=== PATIENT | female | born 1950 | race Caucasian/White ===

== ENCOUNTER 2016-05-09 14:33 | Emergency (ER) | payer OTHER ==
[~2016-05-09] VITALS: Ht 157.5 cm; Wt 66.5 kg
[~2016-05-09 14:33] MED LIST: ABILIFY10 MG; ABILIFY10 MG PO; ABILIFY15 MG PO; ABILIFY5 MG PO; ACETAMINOPHEN325 M1 PO; ADVAIR; ADVAIR 500/501 DISK IH; ALBUTEROL17 GM IH; AMBIEN5 M1 PO; ANUSOL HC,ANUCO25 MG PR; ATIVAN0.5 M1 PO; BACTRIM,SEPT1 TABLET PO; CELEXA40 MG PO; CLEOCIN300 MG PO; CLONAZEPAM0.5 MG PO; COLACE100 MG PO; DIFLUCAN150 MG PO; DILAUDID2 MG PO; DOXYCYCLINE HY100 MG PO; DULCOLAX10 MG PR; EFFEXOR XR150 MG PO; EFFEXOR100 MG PO; ELAVIL25 MG PO; ENDOCET 5-3251 EACH PO; ENDOCET 7.5-321 EACH PO; FERROUS SULFAT325 MG PO; FUROSEMIDE40 MG PO; GABAPENTIN600 MG PO; GEODON80 MG PO; GLUCOPHAGE500 MG PO; HYCODAN SYRUP480 ML PO; IMODIUM MS REL1 EACH PO; IRON160 M1 PO; KLONOPIN; KLONOPIN0.5 M1 PO; KLONOPIN1 MG PO; LASIX40 MG PO; LEVAQUIN500 MG PO; LEVOFLOXACIN750 MG PO; LEXAPRO; LEXAPRO10 MG PO; LEXAPRO20 MG PO; LIDOVEX60 GM TP; LIPITOR5 MG PO; LISINOPRIL10 MG PO; LOMOTIL TABLET1 EACH PO; LORAZEPAM1 MG PO; LOVENOX40 MG/0.4 SC; METFORMIN HCL500 MG PO; MOBIC7.5 MG PO; MOTRIN600 MG PO; MOTRIN800 MG PO; MYCOLOG II CREA15 GM TP; MYCOSTATIN15 GM PO; NAPROXEN500 MG PO; NEURONTIN100 MG PO; NEURONTIN300 MG PO; NICODERM CQ1 EAC1 TD; NICOTINE PATCH1 EAC1 TD; NOVOLOG 10100 UNITS/ SC; NOVOLOG PE100 UNITS/ SC; ONGLYZA5 MG PO; OXYCODONE HCL10 MG PO; OXYCODONE HCL15 MG; OXYCODONE-APAP1 EAC4 PO; OXYCONTIN10 MG PO; OXYCONTIN20 MG PO; PERCOCET; PERCOCET 5/31 TABLET PO; POLYETHYLENE GL17 GM PO; PREDNISONE10 MG; PREDNISONE10 MG PO; PREDNISONE20 MG PO; PRINIVIL10 MG PO; PRINIVIL20 MG PO; PROAIR HFA8.5 GM IH; PROCTOFOAM15 GM TP; ROXICODONE15 MG PO; SKELAXIN800 MG PO; SPIRIVA1 INHALATI IH; TRAMADOL; TRAZODONE HCL50 MG PO; ULTRAM50 MG PO; VALTREX1000 MG PO; VANCOMYCIN1.25 GM/25 IV; XARELTO20 MG PO; ZESTRIL,PRINIVI10 MG PO; ZOVIRAX 5%; ventolin
[2016-05-09] MEDS ORDERED: METFORMIN HCL500 MG PO (16:27)
[2016-05-09] MEDS ORDERED: LEXAPRO20 MG PO (16:27)
[2016-05-09] MEDS ORDERED: ADVAIR 500/501 DISK IH (16:27)
[2016-05-09] MEDS ORDERED: SPIRIVA1 INHALATI IH (16:27)
[2016-05-09] MEDS ORDERED: TRAZODONE HCL50 MG PO (16:27)
[2016-05-09 18:03] VITALS: BP 117/65
== END 2016-05-09 18:04 | disposition home or self-care (01) ==
LOC: EME → EDBD 14:33 → EME 14:33
DX: J44.1 Chronic obstructive pulmonary disease with (acute) exacerbation (principal); Z91.14 Patient's other noncompliance with medication regimen; J43.9 Emphysema, unspecified; I10 Essential (primary) hypertension; E11.9 Type 2 diabetes mellitus without complications; F17.200 Nicotine dependence, unspecified, uncomplicated; Z79.4 Long term (current) use of insulin; Z91.040 Latex allergy status; Z88.2 Allergy status to sulfonamides; Z88.0 Allergy status to penicillin; Z91.013 Allergy to seafood; Z88.8 Allergy status to other drugs, medicaments and biological substances
CPT/HCPCS: 94640; 99281; 99285; J1100; J7644

== ENCOUNTER 2016-08-13 16:40 | Emergency (ER) | payer OTHER ==
[~2016-08-13] VITALS: Ht 154.9 cm; Wt 66.3 kg
[2016-08-13] MEDS ORDERED: LEXAPRO20 MG PO (17:55)
[2016-08-13] MEDS ORDERED: TRAZODONE HCL50 MG PO (17:55)
[2016-08-13 18:22] VITALS: BP 127/54
== END 2016-08-13 18:36 | disposition home or self-care (01) ==
LOC: EME → EDBD 16:40 → EDSEX 16:40 → EME 16:40
DX: M51.16 Intervertebral disc disorders with radiculopathy, lumbar region (principal); F32.9 Major depressive disorder, single episode, unspecified; G89.29 Other chronic pain; I10 Essential (primary) hypertension; E11.9 Type 2 diabetes mellitus without complications; I50.9 Heart failure, unspecified; J44.9 Chronic obstructive pulmonary disease, unspecified; J45.909 Unspecified asthma, uncomplicated; F41.9 Anxiety disorder, unspecified; F17.200 Nicotine dependence, unspecified, uncomplicated; Z85.048 Personal history of other malignant neoplasm of rectum, rectosigmoid junction, and anus; Z79.84 Long term (current) use of oral hypoglycemic drugs
CPT/HCPCS: 99281; 99284; J1885

== ENCOUNTER 2016-09-22 15:44 | Emergency (ER) | payer OTHER ==
[~2016-09-22] VITALS: Ht 154.9 cm; Wt 68.2 kg
[2016-09-22 17:16] LABS: HEMATOCRIT 38.2 % (36.0-46.0); MCH 29.9 PG (29.0-34.0); MCHC 33.2 G/DL (30.0-36.0); MCV 89.9 FL (83-99); MEAN PLAT.VOLUME 9.6 uM^3 (9.5-12.4); PLATELET COUNT 191 K/uL (156-360); RBC DIS.WIDTH-CV 12.9 % (11.8-14.6); RED BLOOD COUNT 4.25 M/uL (3.80-5.20); WHITE BLOOD COUNT 8.6 K/uL (4.1-10.2)
[2016-09-22 17:24] LABS: CHLORIDE 105 mEq/L (99-109); POTASSIUM 4.1 mEq/L (3.7-5.4); SODIUM 140 mEq/L (136-147)
[2016-09-22 17:26] LABS: GLUCOSE 109 mg/dL (70-99); PROTHROMBIN TIME 10.3 (9.2-11.2); PTT 24.8 (25-32)
[2016-09-22 17:28] LABS: ANION GAP 10 MEQ/L (2-14)
[2016-09-22 17:30] LABS: GFR ESTIMATE (CALCULATED) > 59 mL/min/
[2016-09-22 17:31] LABS: UREA NITROGEN (BUN) 19 mg/dL (9-23)
[2016-09-22 20:48] VITALS: BP 110/55
== END 2016-09-22 20:50 | disposition home or self-care (01) ==
LOC: EME 15:44
PROVIDERS: Emergency Medicine
DX: S00.93XA Contusion of unspecified part of head, initial encounter (principal); Y04.2XXA Assault by strike against or bumped into by another person, initial encounter; Y07.499 Other family member, perpetrator of maltreatment and neglect; J44.9 Chronic obstructive pulmonary disease, unspecified; I10 Essential (primary) hypertension; E11.9 Type 2 diabetes mellitus without complications; F17.200 Nicotine dependence, unspecified, uncomplicated
CPT/HCPCS: 70450; 70551; 80048; 85027; 85610; 85730; 99281; 99285; J2060; J7030

== ENCOUNTER 2016-09-24 22:27 | Emergency (ER) | payer OTHER ==
[~2016-09-24] VITALS: Ht 154.9 cm; Wt 68.1 kg
[2016-09-24 22:49] LABS: HEMATOCRIT 38.4 % (36.0-46.0); MCH 29.7 PG (29.0-34.0); MCHC 33.6 G/DL (30.0-36.0); MCV 88.5 FL (83-99); MEAN PLAT.VOLUME 9.9 uM^3 (9.5-12.4); PLATELET COUNT 209 K/uL (156-360); RBC DIS.WIDTH-CV 12.9 % (11.8-14.6); RBC DIS.WIDTH-SD 41.2 % (39-53); RED BLOOD COUNT 4.34 M/uL (3.80-5.20); WHITE BLOOD COUNT 8.7 K/uL (4.1-10.2)
[2016-09-24 22:58] LABS: CHLORIDE 105 mEq/L (99-109); POTASSIUM 3.9 mEq/L (3.7-5.4); SODIUM 138 mEq/L (136-147)
[2016-09-24 23:01] LABS: GLUCOSE 168 mg/dL (70-99)
[2016-09-24 23:02] LABS: ANION GAP 7 MEQ/L (2-14); TOTAL BILIRUBIN 0.4 mg/dL (0.0-1.0)
[2016-09-24 23:04] LABS: ALKALINE PHOSPHATASE 71 IU/L (3-129); GFR ESTIMATE (CALCULATED) > 59 mL/min/
[2016-09-24 23:05] LABS: UREA NITROGEN (BUN) 17 mg/dL (9-23)
[2016-09-24 23:07] LABS: LIPASE 7 U/L (1.0-51.0)
[2016-09-25 01:39] LABS: ADD MIUA? YES; BILIRUBIN NEGATIVE; BLOOD NEGATIVE; COLOR YELLOW ((YELLOW)); GLUCOSE (STRIP) NEGATIVE; KETONES NEGATIVE; LEUKOCYTES LARGE; NITRITE POSITIVE; PROTEIN (STRIP) NEGATIVE; SPECIFIC GRAVITY 1.018 (1.000-1.030); UROBILINOGEN 0.2 MG/DL (0.2-1.0)
[2016-09-25 01:41] LABS: BACTERIA RARE /HPF; EPITHELIAL CELLS 1+ /HPF; HYALINE CASTS 0-5 /LPF; MUCUS TRACE /LPF; RED BLOOD CELLS 0-5 /HPF (0-5); WHITE BLOOD CELLS 30-40 /HPF (0-5)
[2016-09-25] MEDS ORDERED: KEFLEX500 MG PO (01:45)
[2016-09-25] MEDS ORDERED: PERCOCET 5/31 TABLET PO (01:55)
[2016-09-25 02:34] VITALS: BP 129/64
== END 2016-09-25 02:35 | disposition home or self-care (01) ==
LOC: EME 22:27
PROVIDERS: Emergency Medicine
DX: S70.02XD Contusion of left hip, subsequent encounter (principal); N30.90 Cystitis, unspecified without hematuria; Y08.89XD Assault by other specified means, subsequent encounter; E11.9 Type 2 diabetes mellitus without complications; J44.9 Chronic obstructive pulmonary disease, unspecified; I10 Essential (primary) hypertension; F17.200 Nicotine dependence, unspecified, uncomplicated; Z79.84 Long term (current) use of oral hypoglycemic drugs; Z79.899 Other long term (current) drug therapy
CPT/HCPCS: 73502; 80053; 81003; 83690; 85027; 99281; 99285

== ENCOUNTER 2016-10-17 18:06 | Emergency (ER) | payer OTHER ==
[~2016-10-17] VITALS: Ht 154.9 cm; Wt 69.9 kg
[~2016-10-17 18:06] MED LIST changes: +KEFLEX500 MG PO
[2016-10-17 19:36] LABS: CHLORIDE 108 mEq/L (99-109); SODIUM 143 mEq/L (136-147)
[2016-10-17 19:37] LABS: HEMATOCRIT 36.7 % (36.0-46.0); MCH 30.3 PG (29.0-34.0); MCHC 32.2 G/DL (30.0-36.0); MEAN PLAT.VOLUME 9.3 uM^3 (9.5-12.4); PLATELET COUNT 217 K/uL (156-360); RBC DIS.WIDTH-CV 14.4 % (11.8-14.6); WHITE BLOOD COUNT 7.6 K/uL (4.1-10.2)
[2016-10-17 19:38] LABS: GLUCOSE 96 mg/dL (70-99); MCV 94.1 FL (83-99)
[2016-10-17 19:40] LABS: ANION GAP 6 MEQ/L (2-14); TOTAL BILIRUBIN 0.2 mg/dL (0.0-1.0)
[2016-10-17 19:42] LABS: ALKALINE PHOSPHATASE 89 IU/L (3-129); GFR ESTIMATE (CALCULATED) > 59 mL/min/
[2016-10-17 19:43] LABS: UREA NITROGEN (BUN) 12 mg/dL (9-23)
[2016-10-17 19:48] LABS: TROP-I INTERPRETATION NEGATIVE; TROPONIN-I < 0.01 ng/mL (0.0-0.30)
[2016-10-17 20:04] LABS: ADD MIUA? YES; BILIRUBIN NEGATIVE; BLOOD NEGATIVE; COLOR YELLOW ((YELLOW)); GLUCOSE (STRIP) NEGATIVE; KETONES NEGATIVE; LEUKOCYTES LARGE; NITRITE POSITIVE; PROTEIN (STRIP) 30; SPECIFIC GRAVITY 1.014 (1.000-1.030); UROBILINOGEN 0.2 MG/DL (0.2-1.0)
[2016-10-17 20:13] LABS: BACTERIA 2+ /HPF; EPITHELIAL CELLS RARE /HPF; MUCUS TRACE /LPF; RED BLOOD CELLS 0-5 /HPF (0-5); UCUL ADDED? YES; WHITE BLOOD CELLS TNTC /HPF (0-5)
[2016-10-17] MEDS ORDERED: KEFLEX500 MG PO (20:59)
[2016-10-17 23:18] VITALS: BP 126/60
== END 2016-10-18 01:16 | disposition home or self-care (01) ==
LOC: EME 18:06
PROVIDERS: Emergency Medicine
DX: N30.00 Acute cystitis without hematuria (principal); E11.9 Type 2 diabetes mellitus without complications; J44.9 Chronic obstructive pulmonary disease, unspecified; I10 Essential (primary) hypertension; F17.200 Nicotine dependence, unspecified, uncomplicated
CPT/HCPCS: 74176; 80053; 81003; 84484; 85027; 87077; 87086; 87186; 93005; 99281; 99285; J0696; J2270; J7050

== ENCOUNTER 2017-01-28 16:06 | Emergency (ER) | payer OTHER ==
[~2017-01-28] VITALS: Ht 162.6 cm; Wt 139.2 kg
[2017-01-28 18:02] LABS: HEMATOCRIT 37.6 % (36.0-46.0); MCH 30.3 PG (29.0-34.0); MCHC 32.7 G/DL (30.0-36.0); MCV 92.6 FL (83-99); MEAN PLAT.VOLUME 9.7 uM^3 (9.5-12.4); PLATELET COUNT 229 K/uL (156-360); RBC DIS.WIDTH-CV 13.1 % (11.8-14.6); RBC DIS.WIDTH-SD 44.3 % (39-53); RED BLOOD COUNT 4.06 M/uL (3.80-5.20); WHITE BLOOD COUNT 8.3 K/uL (4.1-10.2)
[2017-01-28 18:12] LABS: CHLORIDE 107 mEq/L (99-109); SODIUM 138 mEq/L (136-147)
[2017-01-28 18:14] LABS: GLUCOSE 111 mg/dL (70-99)
[2017-01-28 18:16] LABS: ANION GAP 7 MEQ/L (2-14)
[2017-01-28 18:18] LABS: GFR ESTIMATE (CALCULATED) > 59 mL/min/
[2017-01-28 18:19] LABS: UREA NITROGEN (BUN) 15 mg/dL (9-23)
[2017-01-28 18:24] LABS: TROP-I INTERPRETATION NEGATIVE; TROPONIN-I < 0.01 ng/mL (0.0-0.30)
[2017-01-28 20:48] LABS: TROP-I INTERPRETATION NEGATIVE; TROPONIN-I < 0.01 ng/mL (0.0-0.30)
[2017-01-28] MEDS ORDERED: PREDNISONE20 MG PO (21:30)
[2017-01-28] MEDS ORDERED: PROVENTIL HFA6.7 GM IH (21:30)
[2017-01-29 00:08] VITALS: BP 117/63
== END 2017-01-29 00:09 | disposition home or self-care (01) ==
LOC: EME 16:06
PROVIDERS: Emergency Medicine
DX: J44.1 Chronic obstructive pulmonary disease with (acute) exacerbation (principal); R07.9 Chest pain, unspecified; E11.9 Type 2 diabetes mellitus without complications; I10 Essential (primary) hypertension; F41.9 Anxiety disorder, unspecified; F32.9 Major depressive disorder, single episode, unspecified; Z79.84 Long term (current) use of oral hypoglycemic drugs; Z88.0 Allergy status to penicillin; Z88.8 Allergy status to other drugs, medicaments and biological substances; Z91.040 Latex allergy status; F17.200 Nicotine dependence, unspecified, uncomplicated; Z85.048 Personal history of other malignant neoplasm of rectum, rectosigmoid junction, and anus
CPT/HCPCS: 71020; 80048; 84484; 85027; 93005; 94640; 94640 76; 99281; 99285; J7512

== ENCOUNTER 2017-02-06 16:47 | Emergency (ER) | payer OTHER ==
[~2017-02-06] VITALS: Ht 154.9 cm; Wt 63.0 kg
[~2017-02-06 16:47] MED LIST changes: +PROVENTIL HFA6.7 GM IH
[2017-02-06 17:17] LABS: EOSINOPHIL (%) 1.1 % (0-5); EOSINOPHIL COUNT 0.1 K/uL (0-0.3); HEMATOCRIT 43.1 % (36.0-46.0); IMMATURE GRANULOCYTE (%) 1.1 % (0.0-0.7); IMMATURE GRANULOCYTE COUNT 0.1 K/uL; INSTRUMENT ABS NEUTROPHIL CT 9.1 K/uL; LYMPHOCYTE COUNT 1.3 K/uL (1.0-2.8); MCH 30.4 PG (29.0-34.0); MCHC 32.3 G/DL (30.0-36.0); MCV 94.3 FL (83-99); MEAN PLAT.VOLUME 9.5 uM^3 (9.5-12.4); MONOCYTE COUNT 0.7 K/uL (0-0.8); NEUTROPHIL (%) 80.5 % (45-76); NEUTROPHIL COUNT 9.1 K/uL (1.8-6.4); PLATELET COUNT 226 K/uL (156-360); RBC DIS.WIDTH-CV 13.5 % (11.8-14.6); RED BLOOD COUNT 4.57 M/uL (3.80-5.20); WHITE BLOOD COUNT 11.3 K/uL (4.1-10.2)
[2017-02-06 17:25] LABS: CHLORIDE 102 mEq/L (99-109); INTER. NORMALIZED RATIO 1.1; POTASSIUM 3.9 mEq/L (3.7-5.4); PROTHROMBIN TIME 11.6 SEC (10.2-12.9); SODIUM 139 mEq/L (136-147)
[2017-02-06 17:27] LABS: GLUCOSE 117 mg/dL (70-99)
[2017-02-06 17:28] LABS: ANION GAP 11 MEQ/L (2-14); PTT 24.6 SEC (25-37)
[2017-02-06 17:30] LABS: GFR ESTIMATE (CALCULATED) > 59 mL/min/
[2017-02-06 17:31] LABS: UREA NITROGEN (BUN) 20 mg/dL (9-23)
[2017-02-06 17:37] LABS: TROP-I INTERPRETATION NEGATIVE; TROPONIN-I < 0.01 ng/mL (0.0-0.30)
[2017-02-06] MEDS ORDERED: PREDNISONE20 MG PO (18:30)
[2017-02-06] MEDS ORDERED: VENTOLIN HFA18 GM IH (18:30)
[2017-02-06 18:52] VITALS: BP 112/80
== END 2017-02-06 19:58 | disposition home or self-care (01) ==
LOC: EME 16:47
PROVIDERS: Emergency Medicine
DX: J44.9 Chronic obstructive pulmonary disease, unspecified (principal); F17.200 Nicotine dependence, unspecified, uncomplicated; I11.0 Hypertensive heart disease with heart failure; I50.9 Heart failure, unspecified; E11.9 Type 2 diabetes mellitus without complications; Z79.84 Long term (current) use of oral hypoglycemic drugs; F32.9 Major depressive disorder, single episode, unspecified; Z85.048 Personal history of other malignant neoplasm of rectum, rectosigmoid junction, and anus; Z91.040 Latex allergy status; Z88.0 Allergy status to penicillin
CPT/HCPCS: 71020; 80048; 84484; 85025; 85610; 85730; 93005; 94640; 99281; 99285; J7644

== ENCOUNTER 2017-02-13 18:26 | Emergency (ER) | payer OTHER ==
[~2017-02-13] VITALS: Ht 154.9 cm; Wt 59.7 kg
[~2017-02-13 18:26] MED LIST changes: +VENTOLIN HFA18 GM IH
[2017-02-13 20:08] LABS: EOSINOPHIL (%) 0.1 % (0-5); HEMATOCRIT 44.5 % (36.0-46.0); IMMATURE GRANULOCYTE (%) 1.1 % (0.0-0.7); IMMATURE GRANULOCYTE COUNT 0.2 K/uL; INSTRUMENT ABS NEUTROPHIL CT 15.6 K/uL; LYMPHOCYTE COUNT 0.5 K/uL (1.0-2.8); MCH 30.1 PG (29.0-34.0); MCHC 32.4 G/DL (30.0-36.0); MCV 93.1 FL (83-99); MONOCYTE (%) 2.8 % (3-12); MONOCYTE COUNT 0.5 K/uL (0-0.8); NEUTROPHIL (%) 93.1 % (45-76); NEUTROPHIL COUNT 15.6 K/uL (1.8-6.4); PLATELET COUNT 224 K/uL (156-360); RBC DIS.WIDTH-CV 13.5 % (11.8-14.6); RBC DIS.WIDTH-SD 46.2 % (39-53); RED BLOOD COUNT 4.78 M/uL (3.80-5.20); WHITE BLOOD COUNT 16.7 K/uL (4.1-10.2)
[2017-02-13 20:18] LABS: CHLORIDE 106 mEq/L (99-109); POTASSIUM 5.1 mEq/L (3.7-5.4); SODIUM 140 mEq/L (136-147)
[2017-02-13 20:20] LABS: GLUCOSE 152 mg/dL (70-99)
[2017-02-13 20:21] LABS: ANION GAP 11 MEQ/L (2-14)
[2017-02-13 20:23] LABS: GFR ESTIMATE (CALCULATED) > 59 mL/min/
[2017-02-13 20:24] LABS: UREA NITROGEN (BUN) 36 mg/dL (9-23)
[2017-02-13 20:29] LABS: TROP-I INTERPRETATION NEGATIVE; TROPONIN-I < 0.01 ng/mL (0.0-0.30)
[2017-02-13 23:10] LABS: TROP-I INTERPRETATION NEGATIVE; TROPONIN-I < 0.01 ng/mL (0.0-0.30)
[2017-02-14] MEDS ORDERED: LEVAQUIN750 MG PO (03:02)
[2017-02-14 03:20] VITALS: BP 117/47
== END 2017-02-14 03:24 | disposition home or self-care (01) ==
LOC: EME 18:26
PROVIDERS: Emergency Medicine
DX: J44.1 Chronic obstructive pulmonary disease with (acute) exacerbation (principal); I10 Essential (primary) hypertension; E11.9 Type 2 diabetes mellitus without complications; G89.29 Other chronic pain; F32.9 Major depressive disorder, single episode, unspecified; F41.9 Anxiety disorder, unspecified; Z79.84 Long term (current) use of oral hypoglycemic drugs; F17.200 Nicotine dependence, unspecified, uncomplicated; Z88.0 Allergy status to penicillin; Z88.2 Allergy status to sulfonamides; Z88.8 Allergy status to other drugs, medicaments and biological substances; Z91.040 Latex allergy status; Z87.440 Personal history of urinary (tract) infections; Z85.048 Personal history of other malignant neoplasm of rectum, rectosigmoid junction, and anus
CPT/HCPCS: 71020; 80048; 84484; 85025; 93005; 94640; 99281; 99285; J1100; J7040; J7644

== ENCOUNTER 2017-04-28 19:44 | Emergency (ER) | payer OTHER ==
[~2017-04-28] VITALS: Ht 152.4 cm; Wt 64.7 kg
[~2017-04-28 19:44] MED LIST changes: +LEVAQUIN750 MG PO
[2017-04-28] MEDS ORDERED: FERRETTS325 MG PO (20:11)
[2017-04-28] MEDS ORDERED: LEXAPRO10 MG PO (20:12)
[2017-04-28] MEDS ORDERED: BUSPAR5 MG PO (20:12)
[2017-04-28] MEDS ORDERED: ARIPIPRAZOLE5 MG PO (20:12)
[2017-04-28] MEDS ORDERED: REMERON30 M2 PO (20:12)
[2017-04-28 20:31] LABS: HEMATOCRIT 36.3 % (36.0-46.0); HEMOGLOBIN 11.8 G/DL (11.9-15.5); MCH 30.6 PG (29.0-34.0); MCHC 32.5 G/DL (30.0-36.0); PLATELET COUNT 200 K/uL (156-360); RBC DIS.WIDTH-CV 13.6 % (11.8-14.6); RBC DIS.WIDTH-SD 46.7 % (39-53); RED BLOOD COUNT 3.86 M/uL (3.80-5.20); WHITE BLOOD COUNT 8.2 K/uL (4.1-10.2)
[2017-04-28 20:48] LABS: CHLORIDE 109 mEq/L (99-109); POTASSIUM 3.7 mEq/L (3.7-5.4); SODIUM 144 mEq/L (136-147)
[2017-04-28 20:50] LABS: GLUCOSE 152 mg/dL (70-99)
[2017-04-28 20:53] LABS: CREATININE 0.8 mg/dL (0.6-1.3); GFR ESTIMATE (CALCULATED) > 59 mL/min/
[2017-04-28 20:54] LABS: UREA NITROGEN (BUN) 18 mg/dL (9-23)
[2017-04-28 20:55] LABS: TROP-I INTERPRETATION NEGATIVE; TROPONIN-I < 0.01 ng/mL (0.0-0.30)
[2017-04-28] MEDS ORDERED: PREDNISONE50 MG PO (21:26)
[2017-04-28] MEDS ORDERED: KLONOPIN0.5 M1 PO (21:58)
[2017-04-28] MEDS ORDERED: VENTOLIN HFA18 GM IH (21:58)
[2017-04-29 00:10] VITALS: BP 104/60
== END 2017-04-29 00:10 | disposition home or self-care (01) ==
LOC: EME → EDBD 19:44 → EME 04-29 00:10
DX: J44.1 Chronic obstructive pulmonary disease with (acute) exacerbation (principal); I11.0 Hypertensive heart disease with heart failure; I50.9 Heart failure, unspecified; F17.200 Nicotine dependence, unspecified, uncomplicated; E11.9 Type 2 diabetes mellitus without complications; F41.9 Anxiety disorder, unspecified; F32.9 Major depressive disorder, single episode, unspecified; Z85.048 Personal history of other malignant neoplasm of rectum, rectosigmoid junction, and anus; Z91.040 Latex allergy status; Z88.2 Allergy status to sulfonamides; Z88.5 Allergy status to narcotic agent; Z88.0 Allergy status to penicillin
CPT/HCPCS: 71046; 80048; 84484; 85027; 93005; 94640; 99281; 99285; J2060; J7512; J7644

== ENCOUNTER 2017-05-11 14:45 | Emergency (ER) | payer OTHER ==
[~2017-05-11] VITALS: Ht 152.4 cm; Wt 62.3 kg
[~2017-05-11 14:45] MED LIST changes: +ARIPIPRAZOLE5 MG PO; +BUSPAR5 MG PO; +FERRETTS325 MG PO; +PREDNISONE50 MG PO; +REMERON30 M2 PO
[2017-05-11] MEDS ORDERED: NEBULIZER MC (16:42)
[2017-05-11] MEDS ORDERED: ALBUTEROL2.5 MG/3 M IH (16:42)
[2017-05-11] MEDS ORDERED: ZITHROMAX Z-PA250 MG PO (16:42)
[2017-05-11 16:54] LABS: BASOPHIL (%) 0.2 % (0-1); EOSINOPHIL (%) 0.8 % (0-5); EOSINOPHIL COUNT 0.1 K/uL (0-0.3); HEMATOCRIT 34.9 % (36.0-46.0); HEMOGLOBIN 11.3 G/DL (11.9-15.5); IMMATURE GRANULOCYTE (%) 0.7 % (0.0-0.7); LYMPHOCYTE (%) 9.4 % (15-42); LYMPHOCYTE COUNT 0.6 K/uL (1.0-2.8); MCH 30.5 PG (29.0-34.0); MCHC 32.4 G/DL (30.0-36.0); MCV 94.3 FL (83-99); MONOCYTE (%) 9.6 % (3-12); MONOCYTE COUNT 0.6 K/uL (0-0.8); NEUTROPHIL (%) 79.3 % (45-76); NEUTROPHIL COUNT 4.8 K/uL (1.8-6.4); PLATELET COUNT 158 K/uL (156-360); RBC DIS.WIDTH-CV 13.7 % (11.8-14.6); RBC DIS.WIDTH-SD 47.2 % (39-53); WHITE BLOOD COUNT 6.1 K/uL (4.1-10.2)
[2017-05-11 17:08] LABS: ALBUMIN 3.4 G/DL (3.2-4.8); CHLORIDE 109 MEQ/L (99-109); POTASSIUM 3.7 MEQ/L (3.7-5.4); SODIUM 140 MEQ/L (136-147); TOTAL BILIRUBIN 0.3 MG/DL (0.0-1.0)
[2017-05-11 17:13] LABS: ALKALINE PHOSPHATASE 61 IU/L (3-129); ALT (GPT) 5 IU/L (3-49); AST (GOT) 10 IU/L (2-34); CREATININE 0.7 MG/DL (0.6-1.3); GFR ESTIMATE (CALCULATED) > 59 mL/min/; GLUCOSE 106 mg/dL (70-99); TOTAL PROTEIN 6.4 G/DL (6.4-8.3); UREA NITROGEN (BUN) 13 mg/dL (9-23)
[2017-05-11 19:20] VITALS: BP 97/48
== END 2017-05-11 19:21 | disposition home or self-care (01) ==
LOC: EME 14:45
PROVIDERS: Emergency Medicine Emergency Medical Services
DX: J44.0 Chronic obstructive pulmonary disease with (acute) lower respiratory infection (principal); J20.9 Acute bronchitis, unspecified; J44.1 Chronic obstructive pulmonary disease with (acute) exacerbation; D64.9 Anemia, unspecified; E11.9 Type 2 diabetes mellitus without complications; I10 Essential (primary) hypertension; F41.9 Anxiety disorder, unspecified; F32.9 Major depressive disorder, single episode, unspecified; F17.200 Nicotine dependence, unspecified, uncomplicated; Z87.440 Personal history of urinary (tract) infections; Z85.048 Personal history of other malignant neoplasm of rectum, rectosigmoid junction, and anus; Z90.49 Acquired absence of other specified parts of digestive tract; Z91.040 Latex allergy status; Z88.5 Allergy status to narcotic agent; Z88.2 Allergy status to sulfonamides; Z88.0 Allergy status to penicillin; Z88.8 Allergy status to other drugs, medicaments and biological substances
CPT/HCPCS: 71045; 80053; 85025; 94644; 99281; 99285; J7040; J7512; J7644

== ENCOUNTER 2017-05-18 02:45 | Inpatient (IN) | payer OTHER ==
[~2017-05-18] VITALS: Ht 154.9 cm; Wt 66.2 kg
[~2017-05-18 02:45] MED LIST changes: +ALBUTEROL2.5 MG/3 M IH; -FERRETTS325 MG PO; +IRON325 M1 PO; +NEBULIZER MC; +ZITHROMAX Z-PA250 MG PO
[2017-05-18 03:37] LABS: HEMATOCRIT 34.7 % (36.0-46.0); HEMOGLOBIN 11.3 G/DL (11.9-15.5); MCH 30.5 PG (29.0-34.0); MCHC 32.6 G/DL (30.0-36.0); MCV 93.8 FL (83-99); PLATELET COUNT 200 K/uL (156-360); RBC DIS.WIDTH-CV 12.9 % (11.8-14.6); RBC DIS.WIDTH-SD 44.4 % (39-53); WHITE BLOOD COUNT 5.5 K/uL (4.1-10.2)
[2017-05-18 03:42] LABS: CARBON DIOXIDE (BICARBONATE) 37.3 MEQ/L (20-31)
[2017-05-18 03:51] LABS: ALBUMIN 3.4 g/dL (3.2-4.8); CHLORIDE 107 mEq/L (99-109); POTASSIUM 3.9 mEq/L (3.7-5.4); SODIUM 143 mEq/L (136-147)
[2017-05-18 03:54] LABS: GLUCOSE 180 mg/dL (70-99); TOTAL PROTEIN 5.9 g/dL (6.4-8.3)
[2017-05-18 03:56] LABS: TOTAL BILIRUBIN 0.2 mg/dL (0.0-1.0)
[2017-05-18 03:57] LABS: ALKALINE PHOSPHATASE 62 IU/L (3-129); CREATININE 0.6 mg/dL (0.6-1.3); GFR ESTIMATE (CALCULATED) > 59 mL/min/
[2017-05-18 03:58] LABS: TROP-I INTERPRETATION NEGATIVE; TROPONIN-I < 0.01 ng/mL (0.0-0.30); UREA NITROGEN (BUN) 15 mg/dL (9-23)
[2017-05-18 03:59] LABS: AST (GOT) 7 IU/L (2-34)
[2017-05-18 04:00] LABS: ALT (GPT) 7 IU/L (3-49)
[2017-05-18 04:01] LABS: LIPASE 7 U/L (1.0-51.0)
[2017-05-18 04:47] LABS: BASE EXCESS 8.1 mEq/L (-3 to +3); BICARBONATE 34.9 mEq/L (22-26); COMMENTS - BLOOD GASES C+; DEVICE NC; METHEMOGLOBIN 1.1 % (0-1.5); O2 FLOW 3 L/MIN; PCO2 59 mm Hg (35-45); PO2 59 mm Hg (80-100); SITE RR; TOTAL RESP RATE 18 resp/min; pH 7.38 (7.35-7.45)
[2017-05-18 08:43] VITALS: BP 133/103
[2017-05-18 11:29] VITALS: BP 142/62
[2017-05-18] MEDS ORDERED: DESYREL100 MG PO (12:12)
[2017-05-18] MEDS ORDERED: ABILIFY5 MG PO (12:14)
[2017-05-18 16:07] VITALS: BP 135/105
[2017-05-18 23:31] VITALS: BP 121/54
[2017-05-19 11:44] VITALS: BP 101/53
[2017-05-19 15:33] VITALS: BP 135/60
[2017-05-19 20:06] VITALS: BP 119/56
[2017-05-20 00:13] VITALS: BP 144/69
[2017-05-20 05:52] LABS: HEMATOCRIT 31.2 % (36.0-46.0); HEMOGLOBIN 10.1 G/DL (11.9-15.5); MCH 29.6 PG (29.0-34.0); MCHC 32.4 G/DL (30.0-36.0); MCV 91.5 FL (83-99); PLATELET COUNT 207 K/uL (156-360); RBC DIS.WIDTH-SD 42.8 % (39-53); RED BLOOD COUNT 3.41 M/uL (3.80-5.20); WHITE BLOOD COUNT 6.9 K/uL (4.1-10.2)
[2017-05-20 06:17] LABS: ALKALINE PHOSPHATASE 46 IU/L (3-129); ALT (GPT) 6 IU/L (3-49); AST (GOT) 7 IU/L (2-34); CHLORIDE 104 MEQ/L (99-109); CREATININE 0.6 MG/DL (0.6-1.3); GFR ESTIMATE (CALCULATED) > 59 mL/min/; GLUCOSE 216 mg/dL (70-99); POTASSIUM 4.2 MEQ/L (3.7-5.4); SODIUM 138 MEQ/L (136-147); TOTAL BILIRUBIN 0.2 MG/DL (0.0-1.0); TOTAL PROTEIN 5.4 G/DL (6.4-8.3)
[2017-05-20 06:18] LABS: UREA NITROGEN (BUN) 23 mg/dL (9-23)
[2017-05-20 09:10] VITALS: BP 132/70
[2017-05-20 11:52] VITALS: BP 102/54
[2017-05-20 16:13] VITALS: BP 145/65
[2017-05-20 19:29] VITALS: BP 134/60
[2017-05-21 00:14] VITALS: BP 123/56
[2017-05-21 06:55] VITALS: BP 155/72
[2017-05-21 12:45] VITALS: BP 137/60
[2017-05-21 16:46] VITALS: BP 146/67
[2017-05-21 16:52] VITALS: BP 117/58
[2017-05-21 19:25] VITALS: BP 140/58
[2017-05-22 00:35] VITALS: BP 111/62
[2017-05-22 08:18] VITALS: BP 117/58
[2017-05-22 11:56] VITALS: BP 135/63
[2017-05-22 15:34] VITALS: BP 165/70
[2017-05-22 19:00] VITALS: BP 128/58
[2017-05-23 00:08] VITALS: BP 121/63
[2017-05-23 05:51] LABS: HEMATOCRIT 33.7 % (36.0-46.0); HEMOGLOBIN 11.1 G/DL (11.9-15.5); MCH 29.8 PG (29.0-34.0); MCHC 32.9 G/DL (30.0-36.0); MCV 90.6 FL (83-99); PLATELET COUNT 234 K/uL (156-360); RBC DIS.WIDTH-CV 13.4 % (11.8-14.6); RBC DIS.WIDTH-SD 43.7 % (39-53); RED BLOOD COUNT 3.72 M/uL (3.80-5.20); WHITE BLOOD COUNT 8.5 K/uL (4.1-10.2)
[2017-05-23 06:25] LABS: CHLORIDE 104 MEQ/L (99-109); CREATININE 0.6 MG/DL (0.6-1.3); GFR ESTIMATE (CALCULATED) > 59 mL/min/; GLUCOSE 99 mg/dL (70-99); POTASSIUM 3.8 MEQ/L (3.7-5.4); SODIUM 140 MEQ/L (136-147); UREA NITROGEN (BUN) 22 mg/dL (9-23)
[2017-05-23 06:45] LABS: ABS NEUTROPHIL COUNT 6.8; ANISOCYTOSIS 1+; ATYPICAL LYMPHOCYTE 0.9 %; BAND NEUTROPHILS 1.7 % (0-8.0); EOSINOPHIL ABS CT 0.1; EOSINOPHILS 0.8 % (0-5.0); LYMPHOCYTES 8.6 % (15.0-45.0); METAMYELOCYTES 0.9 %; MICROCYTOSIS 1+; MONOCYTES 8.6 % (0-9.0); PLAT.SUFFICIENCY ADEQUATE; SEG.NEUTROPHILS 78.5 % (46.0-76.0)
[2017-05-23 09:11] VITALS: BP 156/66
[2017-05-23 12:39] VITALS: BP 109/55
[2017-05-23 15:31] VITALS: BP 147/67
[2017-05-23] MEDS ORDERED: PREDNISONE20 MG PO (16:22)
[2017-05-23] MEDS ORDERED: GUAIFENESI100 MG/5 M PO (16:22)
[2017-05-23] MEDS ORDERED: DOXYCYCLINE HY100 MG PO (16:23)
[2017-05-24] MEDS ORDERED: NEBULIZER MC (16:04)
== END 2017-05-23 18:57 | disposition home health service (06) | DRG 190 ==
LOC: EME → EDBD 02:45 → EME 02:45 → EDOF 05:28 → ENRESERV 05:31 → EDOF 07:38 → 5WEST 07:38 → EDOF 07:38 → 5WEST 08:22
PROVIDERS: Emergency Medicine; Family Medicine; Internal Medicine
DX: J44.1 Chronic obstructive pulmonary disease with (acute) exacerbation (principal); J96.21 Acute and chronic respiratory failure with hypoxia; E87.2 Acidosis; I11.0 Hypertensive heart disease with heart failure; I50.9 Heart failure, unspecified; E11.9 Type 2 diabetes mellitus without complications; F31.9 Bipolar disorder, unspecified; F41.1 Generalized anxiety disorder; G89.29 Other chronic pain; M54.9 Dorsalgia, unspecified; E78.5 Hyperlipidemia, unspecified; D64.9 Anemia, unspecified; F17.200 Nicotine dependence, unspecified, uncomplicated; Z85.048 Personal history of other malignant neoplasm of rectum, rectosigmoid junction, and anus; Z23 Encounter for immunization; Z99.81 Dependence on supplemental oxygen; Z88.2 Allergy status to sulfonamides; Z88.0 Allergy status to penicillin; Z91.040 Latex allergy status
CPT/HCPCS: 36600; 71045; 80048; 80053; 82803; 83605; 83690; 83880; 84484; 85025; 85027; 87040; 90686; 93005; 94640; 94640 76; 94760; 94799; 99202; 99281; 99285; J1100; J1650; J1956; J2930; J3370; J7030; J7512; J7644

== ENCOUNTER 2017-05-24 14:50 | Emergency (ER) | payer OTHER ==
[~2017-05-24] VITALS: Ht 152.4 cm; Wt 66.0 kg
[~2017-05-24 14:50] MED LIST changes: +DESYREL100 MG PO; +GUAIFENESI100 MG/5 M PO
[2017-05-24] MEDS ORDERED: NEBULIZER MC (16:04)
[2017-05-24 17:29] VITALS: BP 139/81
== END 2017-05-24 17:32 | disposition home or self-care (01) ==
LOC: EME 14:50
DX: J44.1 Chronic obstructive pulmonary disease with (acute) exacerbation (principal); J44.0 Chronic obstructive pulmonary disease with (acute) lower respiratory infection; J18.9 Pneumonia, unspecified organism; M79.602 Pain in left arm; R51 Headache; S40.022A Contusion of left upper arm, initial encounter; X58.XXXA Exposure to other specified factors, initial encounter; I45.10 Unspecified right bundle-branch block; Z88.0 Allergy status to penicillin; Z88.2 Allergy status to sulfonamides; Z72.0 Tobacco use
CPT/HCPCS: 93005; 94640; 99281; 99284; J7644